=== PATIENT | male | born 1980 | race Caucasian/White ===

== ENCOUNTER 2018-08-11 19:51 | Emergency (ER) | payer OTHER ==
[~2018-08-11] VITALS: Ht 167.6 cm; Wt 70.8 kg
[2018-08-11 20:00] VITALS: BP 158/110
--- NOTE | 2018-08-11 20:08 | NUR ---
PT TAKEN TO BED 11
--- NOTE | 2018-08-11 20:09 | NUR ---
FLU SWAB OBTAINED
--- NOTE | 2018-08-11 20:10 | NUR ---
38/M PRESENTS TO ED, C/O "BAD SMELL" FROM NOSE, COUGH, CONGESTION, X4 DAYS. REPORTS RESOLVED FEVER/CHILLS. REPORTS NAUSEA. REPORTS INTERMITTENT FRONTAL HEADACHE. AOX4, GCS 15, RR EVEN AND UNLABORED. DENIES MED HX OR RX. SOCIAL HX: 1PPD SMOKER, OCCASIONAL METH USE
--- NOTE | 2018-08-11 21:10 | NUR ---
Dr. Nieto evaluating patient at bedside.
[2018-08-11] MEDS ORDERED: PHENYLEPHRINE 0.5% 15 ML BTL NS ONE (21:15)
--- NOTE | 2018-08-11 21:25 | NUR ---
Arsh bhandari in EDM - 08/11/18 at 2147 by FILIBERTO Patient discharged with v/s stable. Ambulatory with steady gait. All questions addressed prior to discharge. PT LEFT PRIOR TO ACI.
[2018-08-11 21:34] VITALS: BP 150/90
--- NOTE | 2018-08-11 21:34 | NUR ---
Patient discharged with v/s stable. Written and verbal after care instructions given and explained. Patient alert, oriented and verbalized understanding of instructions. Ambulatory with steady gait. All questions addressed prior to discharge. ID band removed. Patient advised to follow up with PMD. Rx of FLONASE AND AFRIN given. Patient educated on indication of medication including possible reaction and side effects. Opportunity to ask questions provided and answered.
== END 2018-08-11 21:34 | disposition home or self-care (01) ==
LOC: MED 19:51 → EDSEX 19:51 → MED 21:34
DX: J01.90 Acute sinusitis, unspecified (principal)
CPT/HCPCS: 87804; 99283